=== PATIENT | male | born 1985 | race Caucasian/White ===

== ENCOUNTER 2017-04-10 15:34 | Day surgery (SDC) | payer OTHER ==
[2017-04-02 12:51] LABS: APPEARANCE,URINE CLEAR; BILIRUBIN,URINE NEGATIVE (NEGATIVE); GLUCOSE, URINE NEGATIVE (NEGATIVE); KETONES,URINE NEGATIVE (NEGATIVE); LEUKOCYTE ESTERASE,URINE LARGE (NEGATIVE); NITRITE,URINE NEGATIVE (NEGATIVE); PROTEIN,URINE 30 mg/dL (NEGATIVE); URINE SPECIFIC GRAVITY 1.003
[2017-04-02 12:53] LABS: ABSOLUTE BASOPHILS # (AUTO) 0.1 10^3/uL (0.0-0.2); ABSOLUTE EOSINOPHILS # (AUTO) 0.3 10^3/uL (0.0-0.6); ABSOLUTE LYMPHOCYTES (AUTO) 2.4 10^3/uL (0.5-4.7); ABSOLUTE MONOCYTES (AUTO) 0.7 10^3/uL (0.1-1.4); ABSOLUTE NEUT (AUTO) 8.4 10^3/uL (1.7-8.2); BASOPHILS % (AUTO) 0.5 % (0-2); EOSINOPHILS % (AUTO) 2.2 % (0-6); HEMATOCRIT 43.8 % (37.9-51.0); HEMOGLOBIN 15.5 g/dL (13.5-17.0); HGB HCT DIFFERENCE 2.7; LYMPHOCYTES % (AUTO) 20.1 % (13-45); MEAN CORPUSCULAR HEMOGLOBIN 30.8 pg (27.0-33.4); MEAN CORPUSCULAR HGB CONC 35.3 g/dL (32.0-36.0); MEAN CORPUSCULAR VOLUME 87 fl (80-97); MONOCYTES % (AUTO) 5.7 % (3-13); RED BLOOD COUNT 5.02 10^6/uL (4.35-5.55); RED CELL DISTRIBUTION WIDTH 12.6 % (11.5-14.0); SEGMENTED NEUTROPHILS % (AUTO) 71.5 % (42-78); WHITE BLOOD COUNT 11.8 10^3/uL (4.0-10.5)
[2017-04-02 13:32] LABS: ANION GAP 13 (5-19); BLOOD UREA NITROGEN 13 mg/dL (7-20); CALCIUM 9.2 mg/dL (8.4-10.2); CARBON DIOXIDE 23 mmol/L (22-30); CHLORIDE 102 mmol/L (98-107); CREATININE RESULT 0.86 mg/dL (0.52-1.25); GLUCOSE 80 mg/dL (75-110); POTASSIUM 4.1 mmol/L (3.6-5.0); SODIUM 137.8 mmol/L (137-145)
[~2017-04-10 15:34] MED LIST: CEFAZOLIN SODIUM 2 GM in DEXTROSE 5%-WATER 100 ML IV PRN; LACTATED RINGERS 1000 ML IV PRN; LIDOCAINE 0.5% INJ-PF (5 MG/ML) 50 ML SDV SUBCUT PRN
[2017-04-10] MEDS ORDERED: PROPOFOL INJ 200 MG/20 ML VIAL IV ONE (19:06)
[2017-04-10] MEDS ORDERED: IBUPROFEN INJ 800 MG/8 ML VIAL IV ONE (19:06)
[2017-04-10] MEDS ORDERED: DEXAMETHASONE SOD PHOSPHATE INJ 4 MG/1 ML VIAL ONE (19:06)
[2017-04-10] MEDS ORDERED: FENTANYL CITRATE INJ/PF 250 MCG/5 ML AMPULE ONE (19:06)
[2017-04-10] MEDS ORDERED: ONDANSETRON HCL INJ/PF 4 MG/2 ML SDV ONE (19:06)
[2017-04-10] MEDS ORDERED: MIDAZOLAM 2 MG/2 ML INJ ONE (19:06)
[2017-04-10] MEDS ORDERED: HYDROMORPHONE HCL INJ/PF 2 MG/ML AMPULE ONE ×2 (19:07)
[2017-04-10] MEDS ORDERED: MEPERIDINE HCL/PF INJ 25 MG/1 ML DISP.SYRIN IV PRN (19:43)
[2017-04-10] MEDS ORDERED: DIPHENHYDRAMINE HCL 50 MG/ML VIAL IV PRN (19:43)
[2017-04-10] MEDS ORDERED: ONDANSETRON HCL INJ/PF 4 MG/2 ML SDV IV PRN ×2 (19:43→21:09)
[2017-04-10] MEDS ORDERED: FENTANYL CITRATE INJ/PF 100 MCG/2 ML AMPUL IV PRN ×3 (19:43)
[2017-04-10] MEDS ORDERED: BUPIVACAINE HCL 0.5 % INJ/PF 30 ML SDV ONE (20:48)
[2017-04-10] MEDS ORDERED: HYDROMORPHONE HCL INJ/PF 2 MG/ML AMPULE IV PRN (21:09)
--- NOTE | 2017-04-10 21:10 | PDOC DISCHARGE SUMMARY ---
Discharge Summary (SDC) - Discharge Final Diagnosis: Left Tibia/Fibula Nonunion Date of Surgery: 04/10/17 Discharge Date: 04/10/17 Condition: Good Treatment or Instructions: Schedule Follow Up w/ Dr. Rahul Stallings @ [facility] for Surgery to be seen in 10-14 days or as scheduled [place]: [place]: [place]: Keep splint clean/dry/intact. Ice and elevate Flat Foot Partial Weight Bearing Stool softener of choice when on pain medication. Prescriptions: Oxycodone HCl/Acetaminophen [Percocet 7.5-325 mg Tablet] 1 - 2 tab PO ASDIR PRN #40 tab PRN Reason: Referrals: KELSEY PINA PA [Primary Care Provider] - Discharge Diet: As Tolerated Discharge Activity: No Lifting Over 10 Pounds, No Lifting/Push/Pulling Report the Following to Your Physician Immediately: Fever over 101 Degrees, Unusual Bleeding, Redness, Swelling, Warmth, Increased Soreness
--- NOTE | 2017-04-10 21:16 | Operative Report ---
Operative Report DATE OF SURGERY: 04/10/17 PREOPERATIVE DIAGNOSIS: Left Tibial/Fibular Nonunion POSTOPERATIVE DIAGNOSIS: Same OPERATION: ORIF Left Fibula. Removal Hardware Left Tibia SURGEON: MAYKEL SHAW ANESTHESIA: GA COMPLICATIONS: None ESTIMATED BLOOD LOSS: Minimal PROCEDURE: Indication for above procedure: 31-year-old male who sustained injury to his left lower extremity including fibula and tibia fractures. He subsequently underwent IM nailing of the left tibial shaft patient has been progressing appropriately until he continued to have discomfort along the fibula and the fracture site of the tibia. X-rays demonstrated evidence of osseous healing but not complete osseous consolidation at that point we discussed treatment options because of the continued pain along the distal fibula the joint decision made to proceed with open reduction internal fixation. Furthermore to provide increased stimulation of the tibial shaft we discussed the possibility of exchanged re-nailing versus hardware removal which would result in dynamization. After discussing these options we decided to proceed with hardware removal understanding of this failed to provide stimulation for union he may require IM exchange nailing. Procedure In Detail: Patient was seen and evaluated in the preoperative holding area. The LEFT lower extremity was initialized and marked. Patient received 2g of Ancef IV for bacterial prophylaxis. Patient was taken back to the operative room where transferred to the operative table and placed under general anesthesia. Once they were adequately anesthetized a nonsterile tourniquet was placed on the lower extremity. A surgical team debriefing was performed ensuring all instrumentation was available, the surgical procedure was discussed with possible concerns reviewed. The lower extremity was prepped with chloraprep and draped in a sterile fashion. A timeout was done identifying correct patient, procedure and extremity everyone in attendance agree with this and verbalized no concerns. The extremity was exsanguinated the tourniquet was inflated to 300 mmHg. With C-arm fluoroscopy I isolated the 3 distal locking bolts of the tibial nail. Blunt dissection was performed down to the screw heads. The screws were then removed in their entirety. Once removed attempted dynamization of the tibia however there was no evidence of instability or malrotation. Radiographs demonstrated partial union medially and laterally but incomplete union anteriorly. At that point the decision was made to leave the nail free of any distal locking to allow dynamization with weightbearing. At this point I turned my attention to the fibular shaft fracture. Longitudinal skin incision was made over the fracture. Blunt dissection was performed. The fascia over the peroneus was opened. The superficial peroneal nerve was identified anteriorly and protected. I then elevated the muscular of the peroneal longus and brevis identifying the fracture site. There was evidence of hypertrophic callus formation indicative of likely hypertrophic nonunion from inadequate fixation. With osteotomes and a rongeur the nonunion was taken down until good appearing bleeding cancellus bone was visualized. I then proceeded with fixation. Using a reduction tenaculum the fracture was compressed however there was some shortening and thus I did not want to lengthen the fibula which would increase risk of nonunion. Thus the 2 ends were compressed and a WikiWand fibular plate was placed. It was first fixated distally through the dynamic hole. I then completed fixation proximally. Once fracture was fixated proximally the screw was loosened distally in the dynamic hole and I proceeded with compression of the fracture. Once I got maximum amount of compression possible the screws was again tightened. I then completed fixation with additional bicortical screw and finally a locking screw distally. C-arm fluoroscopy was obtained demonstrating improved alignment of the fibular fracture. No change in alignment of tibia fracture. The wound was then irrigated with normal saline. Some of the callus that was removed from the fracture site was then mixed with Vitoss bone substitute impacted into position. Final C-arm fluoroscopy was obtained demonstrating compression at the fracture site with acceptable alignment of the hardware. The fascia was closed with interrupted 2-0 Vicryl suture. Subcutaneous tissues were closed with subcuticular interrupted 3-0 Monocryl suture. Skin was closed with elizabeth. 20 cc of 0.5% Marcaine without epinephrine was injected for postoperative pain control. Tourniquet was deflated patient had good peripheral perfusion. Wound was dressed with Xeroform 4 x 4's and patient was placed in a posterior plaster splint. Sponge counts, instrument counts, needle counts counts were correct. Patient was then awoken from anesthesia. Transferred from the operating room table to the operating room stretcher. There was no intraoperative complications patient tolerated procedure well stable to PACU. Postoperative plan: Patient will follow in the office in 10-14 days at that point we will proceed with staple removal and obtain radiographs of his left ankle. Patient will be placed on flatfoot partial weightbearing and continue immobilization.
--- NOTE | 2017-04-10 21:29 | RADIOLOGY REPORT (SQ) ---
EXAM DESCRIPTION: NO CHG FLUORO COMPLETE DATE/TIME: 04/10/2017 8:58 pm REASON FOR STUDY: ORIF LEFT ANKLE T84.84XA PAIN DUE TO INTERNAL ORTHOPEDIC PROSTH DEV/GRFT, IN FINDINGS: Please see combined report for performance of procedure and radiologic supervision and int erpretation. IMPRESSION: Please see combined report for performance of procedure and radiologic supervision and i nterpretation.
--- NOTE | 2017-04-10 21:29 | RADIOLOGY REPORT (SQ) ---
EXAM DESCRIPTION: ANKLE LEFT AP/LATERAL COMPLETED DATE/TIME: 04/10/2017 8:58 pm REASON FOR STUDY: ORIF LEFT ANKLE T84.84XA PAIN DUE TO INTERNAL ORTHOPEDIC PROSTH DEV/GRFT, IN COMPARISON: None. FLUOROSCOPY TIME: 0.7 minutes 2 images saved to PACS. TECHNIQUE: Intra-operative images acquired during surgical procedure to evaluate progress. NUMBER OF IMAGES: 2 image LIMITATIONS: None. FINDINGS: Fluoroscopic images were obtained of the distal tibia and fibula. Orthopedic hardware is identified in position IMPRESSION: IMAGE(S) OBTAINED DURING PROCEDURE. COMMENT: Quality ID [id number]: Final reports for procedures using fluoroscopy that document radiation exp osure indices, or exposure time and number of fluorographic images (if radiation exposure indices are not available) Please consult full operative report of the attending physician for description of the procedure. TECHNICAL DOCUMENTATION: JOB ID: [id number] [employer]- All Rights Reserved
[2017-04-10] MEDS ORDERED: FENTANYL CITRATE INJ/PF 100 MCG/2 ML AMPUL ONE (21:41)
[2017-04-10] MEDS: OXYCODONE-ACETAMINOPHEN 5-325 MG TABLET PO PRN (23:53)
[2017-04-11 08:06] VITALS: BP 158/82
[2017-04-11] MEDS: OXYCODONE-ACETAMINOPHEN 5-325 MG TABLET PO PRN (08:47)
== END 2017-04-11 10:05 | disposition home or self-care (01) ==
LOC: 2N 15:34 → OROUT 15:34
PROVIDERS: ATTEND Orthopaedic Surgery
PROC: 0QPH04Z Removal of Internal Fixation Device from Left Tibia, Open Approach (ICD-10-PCS; 2017-04-10)
PROC: 0QSK04Z Reposition Left Fibula with Internal Fixation Device, Open Approach (ICD-10-PCS; principal; 2017-04-10 17:30)
DX: S82.202K Unspecified fracture of shaft of left tibia, subsequent encounter for closed fracture with nonunion (principal); S82.402K Unspecified fracture of shaft of left fibula, subsequent encounter for closed fracture with nonunion; X58.XXXD Exposure to other specified factors, subsequent encounter; T84.84XA Pain due to internal orthopedic prosthetic devices, implants and grafts, initial encounter; F17.210 Nicotine dependence, cigarettes, uncomplicated; Z79.82 Long term (current) use of aspirin
CPT/HCPCS: 36415; 85025; 80048; 81001; 73600; 27784; 20680; C1713 ×3; J2250; J0690; J1100; J3010 ×2; J1170 ×2; J2405; J2704; J1741; 01480